=== PATIENT | male | born 1975 | race Caucasian/White ===

== ENCOUNTER 2017-05-22 12:19 | Emergency (ER) | payer OTHER ==
[~2017-05-22] VITALS: Ht 182.9 cm; Wt 81.2 kg
[2017-05-22 12:24] VITALS: BP 115/74
[2017-05-22] MEDS ORDERED: DIPH,PERTUSS(ACELL),TET VAC/PF 0.5 ML IM-VACC ONE ×2 (12:57→13:00)
[2017-05-22] MEDS ORDERED: L.E.T SOLUTION TP ONE ×2 (13:00→13:04)
[2017-05-22] MEDS ORDERED: LIDOCAINE 1%, 20ML ONE (13:18)
== END 2017-05-22 13:53 | disposition home or self-care (01) ==
LOC: ED 13:30
DX: S01.01XA Laceration without foreign body of scalp, initial encounter (principal); W22.8XXA Striking against or struck by other objects, initial encounter; Y93.89 Activity, other specified; Y99.0 Civilian activity done for income or pay; Y92.69 Other specified industrial and construction area as the place of occurrence of the external cause
CPT/HCPCS: 12032; 90471; 90715

== ENCOUNTER 2017-05-31 09:15 | Emergency (ER) | payer OTHER ==
[~2017-05-31] VITALS: Ht 182.9 cm; Wt 81.5 kg
[2017-05-31 09:16] VITALS: BP 103/65
== END 2017-05-31 09:59 | disposition home or self-care (01) ==
LOC: ED 09:43
DX: S01.91XD Laceration without foreign body of unspecified part of head, subsequent encounter (principal); X58.XXXD Exposure to other specified factors, subsequent encounter
CPT/HCPCS: 99281